=== PATIENT | male | born 1945 | race Caucasian/White ===

== ENCOUNTER → 2024-03-26 13:03 | Outpatient (REF) | payer OTHER, SELFPAY | LOC: PAVMRI 13:03 | PROVIDERS: ATTENDING PHYSICIAN Physical Medicine & Rehabilitation Pain Medicine; FAMILY PHYSICIAN Internal Medicine | DX: M54.16 Radiculopathy, lumbar region (principal); M48.062 Spinal stenosis, lumbar region with neurogenic claudication | CPT/HCPCS: 72158; A9575 ==

== ENCOUNTER → 2025-06-03 17:02 | Outpatient (REF) | payer OTHER, SELFPAY ==
[2025-06-03 17:27] LABS: Hematocrit 46.6 % (39.0-52.0); Hemoglobin 16.0 g/dL (13.0-18.0); Mean Corp Hgb Conc. 34.3 g/dL (33.0-37.0); Mean Corpuscular Volume 90.7 fL (80.0-94.0); Nucleated Red Blood Cells % 0 % (-); Platelet Count 240 10^3/uL (130-400); Red Cell Dist. Width 13.0 % (11.5-14.5)
[2025-06-03 17:44] LABS: ALT (SGPT) 36 U/L (0-50); AST (SGOT) 32 U/L (17-59); Albumin 4.4 g/dl (3.5-5.0); Alkaline Phosphatase 95 U/L (38-126); Blood Urea Nitrogen 20 mg/dl (9-20); Calcium 9.6 mg/dl (8.4-10.2); Carbon Dioxide 24 mmol/L (22-30); Chloride 104 mmol/L (98-107); Glucose 148 mg/dl (70-99); Potassium 4.0 mmol/L (3.5-5.1); Sodium 136 mmol/L (135-145); Total Protein 6.8 g/dl (6.3-8.2); eGFR 46.48
== END ==
LOC: REG 17:02
PROVIDERS: ATTENDING PHYSICIAN Internal Medicine
DX: R10.32 Left lower quadrant pain (principal); I10 Essential (primary) hypertension; E11.65 Type 2 diabetes mellitus with hyperglycemia
CPT/HCPCS: 36415; 80053; 85025

== ENCOUNTER → 2025-06-04 10:00 | Outpatient (REF) | payer OTHER, SELFPAY | LOC: RAD 10:00 | PROVIDERS: ATTENDING PHYSICIAN Internal Medicine | DX: R10.32 Left lower quadrant pain (principal); E11.65 Type 2 diabetes mellitus with hyperglycemia | CPT/HCPCS: 74177; Q9967 ==

== ENCOUNTER 2025-06-05 11:22 | Emergency (ER) | payer OTHER, SELFPAY ==
[2025-06-05 11:22] VITALS: BMI 34.4
[2025-06-05 11:25] VITALS: BP 127/88
[2025-06-05 11:42] LABS: Urine Character Slightly Cloudy (Clear)
[2025-06-05 11:43] LABS: Hematocrit 43.2 % (39.0-52.0); Hemoglobin 14.9 g/dL (13.0-18.0); Mean Corp Hgb Conc. 34.5 g/dL (33.0-37.0); Mean Corpuscular Volume 89.3 fL (80.0-94.0); Nucleated Red Blood Cells % 0 % (-); Platelet Count 212 10^3/uL (130-400); Red Cell Dist. Width 13.1 % (11.5-14.5)
[2025-06-05 11:58] LABS: Urine Urothelial Cell 0-2 /LPF (FEW)
[2025-06-05 11:59] LABS: Urine Red Blood Cell 50-60 /HPF (0-2)
[2025-06-05 12:06] LABS: ALT (SGPT) 35 U/L (0-50); AST (SGOT) 31 U/L (17-59); Albumin 4.1 g/dl (3.5-5.0); Alkaline Phosphatase 85 U/L (38-126); Blood Urea Nitrogen 21 mg/dl (9-20); Calcium 8.9 mg/dl (8.4-10.2); Carbon Dioxide 22 mmol/L (22-30); Chloride 108 mmol/L (98-107); Glucose 135 mg/dl (70-99); Potassium 4.0 mmol/L (3.5-5.1); Sodium 138 mmol/L (135-145); Total Protein 6.3 g/dl (6.3-8.2); eGFR 50.49
[2025-06-05 12:46] VITALS: BP 122/74
--- NOTE | 2025-06-05 13:12 | ED.GENMED ---
History of Present Illness
General
Chief Complaint: Abdominal Symptoms
Time Seen by Provider: 06/05/25 12:36
History of Present Illness
History of Present Illness:
79-year-old male presents the emergency department for evaluation of left-sided abdominal pain rating to the left flank. He began with the symptoms 3 days ago and saw his primary care physician 2 days ago. He was prescribed Cipro and Flagyl for
presumed diverticulitis. States that last night he had severe increase in pain rating toward the flank as well as dysuria however the symptoms improve dramatically this morning. Had an outpatient CT scan performed yesterday and his doctor advised
him come to the ED as scan was read as normal. Currently feels well with no complaints
Past History
Past History
ED Past Medical History: Cancer, GERD, HTN and NIDDM
ED Past Surgical History: Appendectomy, Orthopedic (Total knee replacement), Urological and Other (Prostatectomy )
Social History
Tobacco: Non-smoker
Personal:
Living: with family
Review of Systems
Review of Systems
Allergies reviewed?: Yes
All Other Systems: ROS reviewed and negative except as documented in HPI and ROS
Phy Exam
Physical Exam
Physical Exam:
GEN: Well appearing, NAD, WDWN
HEENT: Oral mucosa moist, no scleral icterus
Cardiac: Regular rate
Lung: No respiratory distress, no tachypnea
Abdomen: Soft, grossly nontender
MSK: No gross deformity or injuries
Skin: Good color, no pallor or jaundice, no rashes
Neuro: AO x3, moves all extremities freely
Psych: Calm, cooperative
Course
Orders/Labs/Results
Orders:
Orders
06/05/25 11:36
Complete Blood Count/With Diff Urgent
Comprehensive Metabolic Panel Urgent
Urinalysis Reflex To Culture Urgent
Date Specimen was Collected: 06/05/25
Time Specimen was Collected: 11:28
Urine Microscopic Reflex Cult Urgent
Urine Culture Urgent
GREGORIO Source: U
Specimen Description:
Date Specimen was Collected: 06/05/25
Time Specimen was Collected: 11:28
Abnormal Lab Results
06/05/25
11:36
WBC 12.9 H 10^3/uL
(4.8-10.8)
Abs Immat Gran (auto) 0.1 H 10^3/uL
(0-0.05)
Absolute Neuts (auto) 10.0 H 10^3/uL
(1.4-6.5)
Absolute Monos (auto) 1.3 H 10^3/uL
(0.1-0.6)
Neutrophils % 77.2 H %
(42.2-75.2)
Lymphocytes % 10.9 L %
(20.5-51.1)
Monocytes % 10.3 H %
(1.7-9.3)
Chloride 108 H mmol/L
(98-107)
BUN 21 H mg/dl
(9-20)
Creatinine 1.4 H mg/dL
(0.7-1.3)
Glucose 135 H mg/dl
(70-99)
Urine Ketones 1+ A
(Negative)
Ur Occult Blood Reflex 4+ A
(Negative)
Leukocyte Esterase Rfl 2+ A
(Negative)
Urine RBC 50-60 A /HPF
(0-2)
Urine WBC (Reflex) 11-15 A /HPF
(0-5)
Urine Bacteria (Reflex) Moderate A
(Negative)
Urine Albumin (Reflex) 2+ A
(Neg - Trace)
06/05/25 11:36
06/05/25 11:36
Vital Signs
Initial and Last Documented VS:
Initial Vital Signs
Temp Pulse Resp BP Pulse Ox
98.5 F 101 18 127/88 96
06/05/25 11:25 06/05/25 11:25 06/05/25 11:25 06/05/25 11:25 06/05/25 11:25
Last Documented Vital Signs
Temp Pulse Resp BP Pulse Ox
98 F 84 16 122/74 99
06/05/25 12:46 06/05/25 12:46 06/05/25 12:46 06/05/25 12:46 06/05/25 13:13
MDM/Problems Addressed
MDM/Problems Addressed:
I personally reviewed CT images from yesterday and discussed with radiology on-call, it appears that there is actually a 4 mm distal ureteral stone that I suspect the patient has passed evident by his increased pain last night and abrupt resolution
this morning. Given his UA findings with bacteriuria will continue Cipro but discontinue metronidazole
*Pulse Oximetry
SaO2: 99
Oxygen Mode of Delivery: Room air
Patient hypoxic: no
*Critical Care Note
Total Time (30-74mins, 75-104mins- exclusive of procedures): Not Applicable
ED Attending Note
-
Portions of this chart may have been created with voice recognition software.� Occasional wrong word or��sound alike� substitutions may have occurred due to the inherent limitations of voice recognition software.
Discharge Plan
Departure
Patient Disposition: Home (Routine Discharge)
Date of Disposition: 06/05/25
Time of Disposition: 13:12
Patient with high blood pressure during this ER visit?: No
Discharge Problem:
Ureterolithiasis
Instructions: Kidney stones in adults - ED discharge instructions
Prescriptions:
No Action
amlodipine 10 MG tablet
10 mg PO DAILY Qty: 0 0RF
Rx Instructions:
HOLD SYSTOLIC BLOOD PRESSURE <130
glimepiride 1 MG tablet
1 mg PO DAILY
metformin 500 MG tablet
500 mg PO DAILY@1200,1800 Qty: 0 0RF
Rx Instructions:
hold until abx are completed
irbesartan 150 MG tablet
150 mg PO DAILY Qty: 0 0RF
Rx Instructions:
HOLD SYSTOLIC BLOOD PRESSURE <130, hold until seen by your PCP
omeprazole 40 MG capsule,delayed release(DR/EC)
40 mg PO DAILY
multivitamin 1 EACH tablet
1 ea PO DAILY
naproxen sodium [Aleve] 220 MG tablet
220 mg PO PRN PRN (Reason: pain)
doxazosin 4 MG tablet
4 mg PO DAILY
simethicone [Gas-X Extra Strength] 125 MG tablet,chewable
2 tab PO PER PROTOCOL
Patient Comments:
took at 1500 03/03/22 ans 03/04/22 at 0330
bisacodyl 5 MG tablet,delayed release (DR/EC)
10 mg PO PER PROTOCOL
Patient Comments:
took at 03/03/22 at 1500 and 03/04/22 at 0330
cholecalciferol (vitamin D3) [Vitamin D3] 1,000 UNIT capsule
1,000 unit PO DAILY
Miralax:
1 packet PO PER PROTOCOL
Patient Comments:
8 ounce bottle with 64 ounces gatorade at 1800 on 03/03/22
4 ounce bottle with 32 ounces gatorade 0330 on 03/04/22
Referrals:
Joby Pérez I., DO [Family Provider, Internal Medicine]
Activity Restrictions/Additional Instructions:
I suspect you passed a kidney stone at this point. Please discontinue the metronidazole but complete the full course of ciprofloxacin. Follow-up with your primary care physician for further care
Interventions
Interventions:
*Risk Screen - Suicide Last Done: 06/05/25 11:25
*General Assessment Last Done: 06/05/25 11:25
*Neglect/Abuse Screening Last Done: 06/05/25 11:25
*ED- Fall Risk Assessment Last Done: 06/05/25 11:25
*ED COVID-19 Vaccine History Last Done: 06/05/25 11:25
*Nursing Disposition Last Done: 06/05/25 13:17
[facility]ago[facility]-Wultv[facility] Assessment Last Done: 06/05/25 12:46
Discharge Date and Time
Discharge Date/Time: 06/05/25 13:17
Print Language: MAORI
== END 2025-06-05 13:17 | disposition home or self-care (01) ==
LOC: EMR 11:22
PROVIDERS: Emergency Medicine; EMERGENCY PHYSICIAN Emergency Medicine; FAMILY PHYSICIAN Internal Medicine
DX: N20.1 Calculus of ureter (principal); R82.71 Bacteriuria; I10 Essential (primary) hypertension; E11.9 Type 2 diabetes mellitus without complications; Z90.49 Acquired absence of other specified parts of digestive tract; Z90.79 Acquired absence of other genital organ(s)
CPT/HCPCS: 99283; 80053; 81003; 81015; 85025; 87086

== ENCOUNTER 2025-07-31 02:44 | Inpatient (IN) | payer OTHER, SELFPAY ==
[2025-07-30 17:31] VITALS: BP 114/68
--- NOTE | 2025-07-30 21:14 | ED.GENMED ---
History of Present Illness
General
Chief Complaint: DVT/Possible Blood Clot
Source: patient
Exam Limitations: none
Time Seen by Provider: 07/30/25 21:07
History of Present Illness
History of Present Illness:
79-year-old male swelling to the right leg for the last day. Warren some pain in the right lateral hip yesterday with walking. This is improved and is mild in nature. However woke up this morning the swelling to the right leg. No warmth or
erythema to the patient no fever or chills. No chest pain or shortness of breath. No recent long trip.
Past History
Past History
ED Past Medical History: Cancer, GERD, HTN and NIDDM
ED Past Surgical History: Appendectomy, Orthopedic (Total knee replacement), Urological and Other (Prostatectomy )
Social History
Tobacco: Non-smoker
Personal:
Living: with family
Review of Systems
Review of Systems
All Other Systems: Not applicable
Constitutional: Denies fever or chills
Phy Exam
Physical Exam
Physical Exam:
GENERAL: Alert and oriented in no apparent distress
EYE: Orbits normal.
NECK: Supple
CARDIAC: Regular rate and rhythm without any obvious murmurs.
LUNGS: Clear breath sounds,normal
ABDOMEN: Soft, without focal tenderness or distention
NEUROLOGICAL: Alert and oriented , grossly non-focal
SKIN: Warm and dry, mild erythematous hue to the right lower extremity diffusely
MUSCULOSKELETAL: Moderate edema to the right lower extremity diffusely. Good distal pulses and color. No pain with joint motion or bony tenderness.
PSYCH: Normal and appropriate interaction.
Course
Orders/Labs/Results
Orders:
Orders
07/30/25 17:26
Legs, Right US [US Periph Venous LOWER Ext RT] Urgent
Comment:
Reason For Exam: r/o dvt
07/30/25 23:19
Basic Metabolic Panel Urgent
Complete Blood Count/With Diff Urgent
07/31/25
CT Abd/Pel (IV only)-DH only Urgent
Reason For Exam: ct venogram protocal
07/31/25 01:38
PTT Urgent
Comment: Obtain baseline before beginning heparin infusion if not already collected
Heparin 9,000 units IV NOW STA
Pharmacy Request to Place See Dose Instructions PO NOW STA
Discontinue all Active Warfarin orders?: Yes
Nursing to Place Non Medication Order As Directed
Physician Order: PTT 6 hours after initial start of Heparin infusion
07/31/25 01:45
Heparin 22263 Units/250 ml 25,000 units in 250 ml IV PER PROTOCOL
Weight to be used for heparin protocol in kilograms (kg):: 112.2
Protocol:: DVT/PE
PTT Goal Range to be used:: PTT 73 to 111 seconds
Order type:: Initial
INITIAL Infusion Dose (UNITS/KG/hr) & then follow protocol:: 18 units/kg/hr
Infusion Dose in UNITS/hr & then follow protocol (UNITS/hr):: 2,000
INFUSION RATE in mL/hr & then follow protocol (mL/hr):: 20
For DVT/PE algorithm, re-bolus for low PTT?: Yes
PTT less than or equal to 64 seconds:: Re-bolus 80 units/kg (max 10,000units). Increase by 500 units/hr
(+ 5mL/hr)
PTT 64.1 to 72.9 seconds:: Re-bolus 40 units/kg (max 5,000 units). Increase by 200 units/hr
(+ 2mL/hr)
PTT 73 to 111 seconds:: Target Range. No change in rate.
PTT 111.1 to 130.9 seconds:: Decrease rate by 200 units/hr (- 2 mL/hr)
PTT 131 to 199.9 seconds:: HOLD for 1 hr. Then decrease by 400 units/hr (- 4mL/hr)
PTT greater than or equal to 200 seconds:: HOLD for 2 hrs & Notify Provider. Then decrease by 500 units/hr
(- 5mL/hr)
Lab follow-up:: Each change, PTT q6h until 2 consecutive are therapeutic. Then
PTT daily.
07/31/25 02:[address] See Dose Instructions IV DIRECTED
Abnormal Lab Results
07/30/25
23:19
WBC 11.8 H 10^3/uL
(4.8-10.8)
RBC 4.50 L 10^6/uL
(4.70-6.10)
MCH 31.3 H pg
(27.0-31.0)
Abs Immat Gran (auto) 0.1 H 10^3/uL
(0-0.05)
Absolute Neuts (auto) 7.5 H 10^3/uL
(1.4-6.5)
Absolute Monos (auto) 1.3 H 10^3/uL
(0.1-0.6)
Absolute Eos (auto) 0.8 H 10^3/uL
(0-0.7)
Lymphocytes % 17.3 L %
(20.5-51.1)
Monocytes % 11.1 H %
(1.7-9.3)
Eosinophils % 6.5 H %
(0-6)
Chloride 108 H mmol/L
(98-107)
BUN 21 H mg/dl
(9-20)
Glucose 117 H mg/dl
(70-99)
07/30/25 23:19
07/30/25 23:19
Vital Signs
Initial and Last Documented VS:
Initial Vital Signs
Temp Pulse Resp BP Pulse Ox
98.0 F 112 18 114/68 97
07/30/25 17:31 07/30/25 17:31 07/30/25 17:31 07/30/25 17:31 07/30/25 17:31
Last Documented Vital Signs
Temp Pulse Resp BP Pulse Ox
98.1 F 83 18 142/69 95
07/30/25 21:39 07/31/25 01:30 07/31/25 01:30 07/31/25 01:00 07/31/25 01:30
*Radiology
Radiology exam reviewed: radiology read reviewed (Extensive DVT by ultrasound) and other (CT venogram extensive DVT with extensive edema of the right thigh with extension into the right external iliac vein)
*Pulse Oximetry
SaO2: 97
Oxygen Mode of Delivery: Room air
Patient hypoxic: no
*Critical Care Note
Total Time (30-74mins, 75-104mins- exclusive of procedures): Not Applicable
ED Attending Note
-
Portions of this chart may have been created with voice recognition software.� Occasional wrong word or��sound alike� substitutions may have occurred due to the inherent limitations of voice recognition software.
Discharge Plan
Departure
Patient Disposition: Admit
Date of Disposition: 07/31/25
Time of Disposition: 01:42
Presentation/result/management discussed w/ accepting MD/DO: Vascular surgery
Discharge Problem:
Extensive right lower extremity DVT
Prescriptions:
No Action
amlodipine 10 MG tablet
10 mg PO DAILY Qty: 0 0RF
Rx Instructions:
HOLD SYSTOLIC BLOOD PRESSURE <130
glimepiride 1 MG tablet
1 mg PO DAILY
metformin 500 MG tablet
500 mg PO DAILY@1200,1800 Qty: 0 0RF
Rx Instructions:
hold until abx are completed
irbesartan 150 MG tablet
150 mg PO DAILY Qty: 0 0RF
Rx Instructions:
HOLD SYSTOLIC BLOOD PRESSURE <130, hold until seen by your PCP
omeprazole 40 MG capsule,delayed release(DR/EC)
40 mg PO DAILY
multivitamin 1 EACH tablet
1 ea PO DAILY
naproxen sodium [Aleve] 220 MG tablet
220 mg PO PRN PRN (Reason: pain)
doxazosin 4 MG tablet
4 mg PO DAILY
simethicone [Gas-X Extra Strength] 125 MG tablet,chewable
2 tab PO PER PROTOCOL
Patient Comments:
took at 1500 03/03/22 ans 03/04/22 at 0330
bisacodyl 5 MG tablet,delayed release (DR/EC)
10 mg PO PER PROTOCOL
Patient Comments:
took at 03/03/22 at 1500 and 03/04/22 at 0330
cholecalciferol (vitamin D3) [Vitamin D3] 1,000 UNIT capsule
1,000 unit PO DAILY
Miralax:
1 packet PO PER PROTOCOL
Patient Comments:
8 ounce bottle with 64 ounces gatorade at 1800 on 03/03/22
4 ounce bottle with 32 ounces gatorade 0330 on 03/04/22
Referrals:
Joby Pérez I., DO [Family Provider, Internal Medicine]
Interventions
Interventions:
*Risk Screen - Suicide Last Done: 07/30/25 17:31
*General Assessment Last Done: 07/30/25 17:31
*Neglect/Abuse Screening Last Done: 07/30/25 17:31
*ED- Fall Risk Assessment Last Done: 07/30/25 21:34
*ED COVID-19 Vaccine History Last Done: 07/30/25 21:34
ED- Cardiac Assessment Last Done: 07/30/25 21:34
ED- Pulmonary Assessment Last Done: 07/30/25 21:34
ED-Peripheral Vascular Assessment Last Done: 07/30/25 21:36
ED-Skin Assessment Last Done: 07/30/25 21:36
Discharge Date and Time
Print Language: PASHTO
[2025-07-30 21:33] VITALS: BMI 37.6
[2025-07-30 21:47] VITALS: BP 135/69
[2025-07-30 23:08] VITALS: BP 145/67
[2025-07-30 23:30] LABS: Hematocrit 41.3 % (39.0-52.0); Hemoglobin 14.1 g/dL (13.0-18.0); Mean Corp Hgb Conc. 34.1 g/dL (33.0-37.0); Mean Corpuscular Volume 91.8 fL (80.0-94.0); Nucleated Red Blood Cells % 0 % (-); Platelet Count 192 10^3/uL (130-400); Red Cell Dist. Width 13.2 % (11.5-14.5)
[2025-07-30 23:52] LABS: Blood Urea Nitrogen 21 mg/dl (9-20); Calcium 9.2 mg/dl (8.4-10.2); Carbon Dioxide 25 mmol/L (22-30); Chloride 108 mmol/L (98-107); Estimated Creatinine Clearance 88 ml/min; Glucose 117 mg/dl (70-99); Potassium 4.1 mmol/L (3.5-5.1); Sodium 139 mmol/L (135-145); eGFR > 60.00
[2025-07-31] VITALS (10 sets, daily range): BP systolic 132–151; BP diastolic 65–87; BMI 36.1
[2025-07-31] MEDS: HEPARIN 9000 UNITS IV (01:56)
[2025-07-31] MEDS: HEPARIN 25000 UNITS/250 ML IV ×2 (01:58→17:22)
[2025-07-31 02:28] LABS: APTT 25.0 Sec (23.4-35.0)
--- NOTE | 2025-07-31 02:39 | HPS.HSE ---
Family Physician
-
Family Physician: Joby Pérez
Chief Complaint
-
RLE swelling
History of Present Illness
Patient is an 79y M with PMH significant for hypertension, DM-II and GERD who presents to ED complaining of RLE swelling. Patient states that he went for a short walk yesterday afternoon around 2 PM. During the walk he developed sharp pain in
the R hip / buttock area which caused him to cut his walk short. His pain persisted throughout the evening. When he awoke this AM, patient noted marked swelling and discoloration of the entire RLE. He was seen by his PCP who referred him to the
ED for evaluation.
Patient denies any associated chest pain, dyspnea, fevers, chills, etc.
No recent surgery, long car rides, air travel, etc.
No prior h/o VTE.
Medical History
Past Medical History
Past Medical History: Reports Other
Additional Past Medical History:
Hypertension
GERD / Monreal's Esophagus
Prostate Cancer
DM-II
GONZALEZ
Skin Cancer
Obesity
Past Surgical History: Reports Other
Additional Past Surgical History:
Prostatectomy
Appendectomy
Mohs Surgery
Bilateral TKA
Lumbar Laminectomy
Cataracts
Social History
Tobacco: Non-smoker
Alcohol: Daily (2 drinks daily on average.)
Drug: None
Personal:
Living: With Family
Family History
Family History: Not pertinent
Allergies / Home Medications
Allergies reflects when Allergies were last updated in [facility].
Home Medications with original date entered in [facility]
Allergy/Medication List:
Allergies
Allergy/AdvReac Type Severity Reaction Status Date / Time
cat dander Allergy ITCHING/SNEEZING/WATERY Verified 07/30/25 17:31
EYES
pollen extracts Allergy ITCHING/SNEEZING/WATERY Verified 07/30/25 17:31
EYES
Home Medications
amlodipine 10 mg tablet 10 mg PO DAILY ##0 02/08/19
irbesartan 150 mg tablet 150 mg PO DAILY ##0 06/15/19
cholecalciferol (vitamin D3) 25 mcg (1,000 unit) capsule (Vitamin D3) 1,000 unit PO DAILY 03/04/22
doxazosin 4 mg tablet 4 mg PO DAILY 03/04/22
celecoxib 100 mg capsule (Celebrex) 100 mg PO BID 07/31/25
metformin 500 mg tablet 500 mg PO DAILY 07/31/25
pantoprazole 40 mg tablet,delayed release 40 mg PO DAILY 07/31/25
semaglutide 1 mg/dose (4 mg/3 mL) subcutaneous pen injector (Ozempic) 1 mg SC WEEKLY 07/31/25
Review of Systems
-
History Source: Patient
A 12 point ROS was completed and negative except as noted: Yes
Constitutional: Denies Fever, Fatigue or Chills
Respiratory: Denies Cough or Trouble Breathing
Cardiac: Denies Chest Pain or Palpitations
Abdomen/GI: Denies Abdominal Pain, Nausea, Vomiting or Diarrhea
: Denies Dysuria or Flank Pain
Musculoskeletal: Reports Edema
Neurological: Denies Dizzy or Headache
Psych: Denies Depression or Anxiety
Physical Exam
Vital Signs
Vital Signs
Temp Pulse Resp BP Pulse Ox
98.1 F 83 18 142/69 95
07/30/25 21:39 07/31/25 01:30 07/31/25 01:30 07/31/25 01:00 07/31/25 01:30
Physical Exam
General: Other (79y M in no acute distress.)
HEENT: Moist mucous membranes and PERRLA
Respiratory: Clear; No Wheezes, Rales or Rhonchi
Cardiac: S1/S2 and Regular Rhythm; No Murmur
GI: Soft, Non Tender, Non Distended and Normal Bowel Sounds
Musculoskeletal: No Clubbing, No Cyanosis and Other (3-4+ pitting edema of the entire RLE with chronic venous stasis skin changes / discoloration. Pos tenderness throughout.)
Neuro: AO x 3
Laboratory Results
-
07/30/25 23:19
07/30/25 23:19
Laboratory Results
APTT 25.0 Sec (23.4-35.0) 07/31/25 02:03
Impression/Plan
-
A/P: Patient is an 79y M with PMH significant for hypertension, DM-II and obesity who presents to ED complaining of sudden onset of marked RLE swelling.
Extensive RLE DVT
- Admit for further evaluation and treatment.
- IV heparin overnight.
- Supportive care, pain control. Follow for persistent pulses / intact neurovascular exam.
- Vascular Surgery consulted - will likely benefit from directed therapy +/- thrombectomy given extensive nature of thrombosis.
- No clear trigger / etiology - consider outpatient Hematology evaluation.
- May benefit from lifelong anticoagulation.
Benign Hypertension
- Stable. Continue usual home med regimen with holding parameters.
DM-II
- Stable. Hold metformin s/p contrast study.
- Follow glucose and cover with SSI as needed.
- Update A1C.
GERD
- Stable. Continue daily PPI.
Obesity due to excess calories
- Affects all aspects of care.
- Encourage healthy diet and increased activity with goal of weight loss.
- On Ozempic as an outpatient.
DVT Prophylaxis: On IV Heparin
Code Status: Full
[2025-07-31 04:23] LABS: Glucose - Point of Care 104 mg/dl (70-99)
--- NOTE | 2025-07-31 04:34 | PTCARENOTE ---
Pt received from ER [facility] able to make his needs known.Denies pain.Pt received with the heparin drip running at 20ml/hr. Pt oriented to room & call henley in reach.Plan of care continued on pt.
--- NOTE | 2025-07-31 07:19 | W.PN.HOSP.TC ---
Today's Communication/Plan
-
Continue Heparin Drip -- continue through 08/02/25 morning to complete 48 hours
Will transition to [facility] 08/02/25 morning
Appreciate vascular surgery
Assessment / Plan
Assessment / Plan
Physical Exam
General: Not in acute distress
HEENT: Normocephalic. Moist mucous membranes
Respiratory: Clear to Auscultation Bilaterally
Cardiac: S1/S2 and Regular Rhythm
GI: Soft, Non Tender, Non Distended and Normal Bowel Sounds
Musculoskeletal: No Cyanosis and Other (3-4+ pitting edema of the entire RLE with chronic venous stasis skin changes / discoloration. Pos tenderness throughout. Wrapped in EDWIN Wrap)
Neuro: AO x 3
Assessment/Plan
79y M with H significant for hypertension, DM-II and GERD who presented to [facility] emergency room complaining of RLE swelling. Patient stated that he went for a short walk on 07/29/25 afternoon around 2 PM. During the walk, he developed sharp pain in
the right hip/buttock area which caused him to cut his walk short. His pain persisted throughout the evening. When he awoke on 07/30/25 morning, patient noted marked swelling and discoloration of the entire RLE. He was seen by his PCP who
referred him to the ED for evaluation.
Patient denied any associated chest pain, dyspnea, fevers, chills, etc.
No recent surgery, long car rides, air travel, etc.
No prior h/o VTE.
Extensive RLE DVT
- Continue IV heparin DVT/PE protocol
- Supportive care, pain control. Follow for persistent pulses / intact neurovascular exam.
- Vascular Surgery consulted - no procedures at this time, unless patient gets more symptomatic with his right leg
- No clear trigger / etiology - consider outpatient Hematology evaluation -- [facility] Texted (on 07/31/25) on-call identification and records commander, have not heard back yet
- May benefit from lifelong anticoagulation.
- Neurovascular checks
Benign Hypertension
- Stable. Continue usual home med regimen with holding parameters.
DM-II
- Stable. Hold metformin s/p contrast study.
- Follow glucose and cover with SSI as needed.
- Update A1C 5.7%
GERD
- Stable. Continue daily PPI.
Obesity due to excess calories
- Affects all aspects of care.
- Encourage healthy diet and increased activity with goal of weight loss.
- On Ozempic as an outpatient.
DVT Prophylaxis: On IV Heparin
Code Status: Full
This is a non-billable note.
Anticipated Discharge: 24 - 48 hours
Subjective/Interval History
-
Date of Service: July 31, 2025
Patient was seen and examined. He reported no chest pain or shortness of breath, but he still has the same right leg swelling.
Objective Data
-
Labs:
Laboratory Results
07/30/25 07/31/25 07/31/25
23:19 02:03 06:00
WBC 11.8 H
Hgb 14.1
Hct 41.3
Plt Count 192
APTT 25.0
Sodium 139 Pending
Potassium 4.1 Pending
Chloride 108 H Pending
Carbon Dioxide 25 Pending
BUN 21 H Pending
Creatinine 0.8 Pending
Glucose 117 H Pending
Calcium 9.2 Pending
07/31/25
08:00
WBC
Hgb
Hct
Plt Count
APTT Pending
Sodium
Potassium
Chloride
Carbon Dioxide
BUN
Creatinine
Glucose
Calcium
Vital Signs:
Vital Signs
Temp Pulse Resp BP Pulse Ox
98.3 F 84 18 150/69 96
07/31/25 03:49 07/31/25 03:49 07/31/25 03:49 07/31/25 03:49 07/31/25 03:49
I&O
07/30/25 07/31/25 08/01/25
06:59 06:59 06:59
Intake Total 0 / 0
Output Total 0 / 0
Balance 0 / 0
--- NOTE | 2025-07-31 07:56 | W.PN.UPDATE ---
Update Note
Progress Note Update
Seen and examined with [employer]. Full consultation to follow. Briefly 79-year-old male with history of diabetes, hypertension. No prior history of DVTs, no family history of DVTs. He notes that he went for a walk 2 days ago in the afternoon and
started noticing pain when walking. He notes that the pain was mostly in his right hip/buttock area. He could not continue his walk for prolonged period as a result. Then he noted later yesterday that he actually had swelling in the leg and that
prompted referral to the emergency room. Found to have extensive right lower extremity DVT. Denies any recent illnesses, hospitalizations, surgeries, prolonged travels. As noted he denies any personal prior history of DVTs. No history of
malignancies that he is aware of. No history of strokes, intracranial bleeds, GI bleeds, recent major surgeries.
On exam/he is awake and alert. He is in no acute distress. Breathing is unlabored. Abdomen is soft, nondistended, nontender. Groins are flat bilaterally. Right thigh and calf with moderate edema. Soft and compressible however. Nontender.
Compartments are all soft. No phlegmasia. Foot is warm with palpable pedal pulses bilaterally.
Duplex reviewed. Extensive DVT right lower extremity with thrombus in the right groin common femoral vein extending down to the right calf.
CT venogram reviewed images by me. There is thrombus in the common femoral vein. Appears more like a target central thrombus with flow peripherally around it. The external iliac and common iliac veins on the right side look normal without any
evidence of thrombus.
Plan/ Acute extensive right lower extremity DVT. No evidence of iliac vein extension on CT venogram. And on CT venogram there is flow peripherally in the common femoral vein around the thrombus. Based on this, I discussed with him indications for
venous thrombectomy (catheter-based venous thrombectomy versus thrombolysis). Without iliac vein component, without phlegmasia, without severe pain, and given his age, would favor conservative management. I did discuss that we could offer
catheter-based therapy but based on best available data, there may not be of benefit compared to anticoagulation and compression alone. We wrapped the leg with Serge bandage. He is on anticoagulation, would continue that. Would recommend hematology
evaluation for etiology and duration of anticoagulation. If patient with severe extensive continued symptoms when walking/ambulating, please reconsult and we will consider catheter-based procedure. However patient already tell me that he has
walked since he has been here and he was doing fine and had no trouble walking. In addition he notes that his initial buttock pain is resolved.
[2025-07-31 07:59] LABS: Glucose - Point of Care 107 mg/dl (70-99)
--- NOTE | 2025-07-31 07:59 | CON.VAS ---
Consultation
Consultation Request
Date/Time Consultation Performed: 07/27/2025 at 7:30 AM
Performing Provider: Duc
Reason for Consultation: DVT
Medical History
-
Chief Complaint: Right lower extremity swelling
History of Present Illness:
79-year-old male with past medical history significant for hypertension, diabetes, GERD, skin cancer presented to the ER last evening for right lower extremity swelling. Patient states on 07/29 he went for a walk which was shortened by a sudden
onset of right hip/buttock discomfort. He states the pain persisted throughout the evening and when he woke early yesterday morning he noted right lower extremity swelling through the entire leg. Patient was seen by his PCP who referred him to the
emergency room. Denies recent surgeries, long car rides, air travel, GI bleed, head bleed. Denies history of DVT, CAD. Denies family history of DVTs.
Duplex reviewed by Dr Xavier. Extensive DVT right lower extremity with thrombus in the right groin common femoral vein extending down to the right calf.
CT venogram suggests thrombus in the common femoral vein. Appears more like a target central thrombus with flow peripherally around it. The external iliac and common iliac veins on the right side look normal without any evidence of thrombus.
Past Medical History
Past Medical History: Cancer (skin), GERD, HTN and NIDDM
Past Surgical History: Appendectomy and Other (Prostatectomy, Mohs Surgery, Bilateral TKA Lumbar Laminectomy, Cataracts)
Social History
Tobacco: Non-Smoker
Alcohol: Occasional
Personal:
Living: With Family
Family History
Family History: Reviewed & Not Pertinent
Allergies / Home Medications
Allergy/AdvReac Type Severity Reaction Status Date / Time
cat dander Allergy ITCHING/SNEEZING/WATERY Verified 07/30/25 17:31
EYES
pollen extracts Allergy ITCHING/SNEEZING/WATERY Verified 07/30/25 17:31
EYES
�Medication �Instructions �Recorded �Confirmed �Type
amlodipine 10 mg tablet 10 mg PO DAILY ##0 02/08/19 07/31/25 Rx
irbesartan 150 mg tablet 150 mg PO DAILY ##0 06/15/19 07/31/25 Rx
cholecalciferol (vitamin D3) 25 1,000 unit PO DAILY 03/04/22 07/31/25 History
mcg (1,000 unit) capsule (Vitamin
D3)
doxazosin 4 mg tablet 4 mg PO DAILY 03/04/22 07/31/25 History
celecoxib 100 mg capsule (Celebrex) 100 mg PO BID 07/31/25 07/31/25 History
metformin 500 mg tablet 500 mg PO DAILY 07/31/25 07/31/25 History
pantoprazole 40 mg tablet,delayed 40 mg PO DAILY 07/31/25 07/31/25 History
release
semaglutide 1 mg/dose (4 mg/3 mL) 1 mg SC WEEKLY 07/31/25 07/31/25 History
subcutaneous pen injector (Ozempic)
Review of Systems
-
History Source: Patient
All other systems: Negative unless noted
Constitutional: Reports No Symptoms
EENT: Reports No Symptoms
Respiratory: Reports No Symptoms
Cardiac: Reports No Symptoms
Vascular: Denies Leg Pain / Claudication
Abdomen/GI: Reports No Symptoms
: Reports No Symptoms
Musculoskeletal: Reports Edema
Skin: Reports No Symptoms
Neurological: Reports No Symptoms
Physical Exam
Vital Signs
Temp Pulse Resp BP Pulse Ox
98.3 F 84 18 150/69 96
07/31/25 03:49 07/31/25 03:49 07/31/25 03:49 07/31/25 03:49 07/31/25 03:49
Lab Results
07/30/25 23:19
Physical Exam
General: No Apparent Distress
HEENT: Normocephalic and Atraumatic
Respiratory: Non Labored Respirations
Cardiac: Negative JVD
GI: Soft and Non Tender
Musculoskeletal: No Clubbing, No Cyanosis and Edema (RLE, soft, all compartments soft)
Skin: Warm
Neuro: Awake, Alert and Oriented
Psych: Calm
Pulses: Bilateral Dorsalis Pedis: +2
Assessment / Plan
-
Plan/ Acute extensive right lower extremity DVT. No evidence of iliac vein extension on CT venogram. And on CT venogram there is flow peripherally in the common femoral vein around the thrombus. Based on this, I discussed with him indications for
venous thrombectomy (catheter-based venous thrombectomy versus thrombolysis). Without iliac vein component, without phlegmasia, without severe pain, and given his age, would favor conservative management. I did discuss that we could offer
catheter-based therapy but based on best available data, there may not be of benefit compared to anticoagulation and compression alone. We wrapped the leg with Serge bandage. He is on anticoagulation, would continue that. Would recommend hematology
evaluation for etiology and duration of anticoagulation. If patient with severe extensive continued symptoms when walking/ambulating, please reconsult and we will consider catheter-based procedure. However patient already tell me that he has
walked since he has been here and he was doing fine and had no trouble walking. In addition he notes that his initial buttock pain is resolved.
Data Reviewed
-
CT Scan: Discussed with Patient
Ultrasound: Discussed with Patient
Labs: Labs Reviewed by me
[2025-07-31 08:26] LABS: Blood Urea Nitrogen 16 mg/dl (9-20); Calcium 8.9 mg/dl (8.4-10.2); Carbon Dioxide 26 mmol/L (22-30); Chloride 107 mmol/L (98-107); Estimated Creatinine Clearance 86 ml/min; Glucose 112 mg/dl (70-99); Potassium 3.8 mmol/L (3.5-5.1); Sodium 138 mmol/L (135-145); eGFR > 60.00
[2025-07-31 08:49] LABS: APTT > 200 Sec (23.4-35.0)
[2025-07-31] MEDS: CARDURA 4 MG PO (09:26)
[2025-07-31] MEDS: AVAPRO 150 MG PO (09:26)
[2025-07-31] MEDS: PROTONIX 40 MG PO (09:26)
[2025-07-31] MEDS: NORVASC 10 MG PO (09:26)
[2025-07-31 09:40] LABS: Glycohemoglobin (HgbA1c) 5.7 % (4.0-5.6)
[2025-07-31 11:51] LABS: Glucose - Point of Care 133 mg/dl (70-99)
[2025-07-31 16:51] LABS: Glucose - Point of Care 132 mg/dl (70-99)
--- NOTE | 2025-07-31 17:02 | CM ---
Alert awake oriented patient who lives with his Catia who lives in a 1 story home with 0 step to enter.He is independent in driving and in all activities of daily living.He was offered VN he declined need.
Pt [facility] hx / No SNF history
Pharmacy [facility] Jayden Bruno
PCP DR Parry
PLAN Home Declined VN
[2025-07-31 17:33] LABS: APTT 71.2 Sec (23.4-35.0)
[2025-07-31] MEDS: HEPARIN 4500 UNITS IV (17:47)
[2025-08-01 00:27] LABS: Glucose - Point of Care 122 mg/dl (70-99)
[2025-08-01 01:08] LABS: APTT 154.1 Sec (23.4-35.0)
[2025-08-01 03:54] VITALS: BP 136/69
[2025-08-01 07:23] LABS: APTT 65.1 Sec (23.4-35.0)
[2025-08-01 07:52] VITALS: BP 121/72
[2025-08-01 08:03] LABS: Glucose - Point of Care 103 mg/dl (70-99)
[2025-08-01] MEDS: NORVASC 10 MG PO (08:35)
[2025-08-01] MEDS: CARDURA 4 MG PO (08:35)
[2025-08-01] MEDS: AVAPRO 150 MG PO (08:36)
[2025-08-01] MEDS: PROTONIX 40 MG PO (08:36)
[2025-08-01] MEDS: HEPARIN 4500 UNITS IV (08:38)
--- NOTE | 2025-08-01 08:38 | W.PN.HOSP.TC ---
Today's Communication/Plan
-
Discharge today
Assessment / Plan
Assessment / Plan
Physical Exam
General: Not in acute distress
HEENT: Normocephalic. Moist mucous membranes
Respiratory: Clear to Auscultation Bilaterally
Cardiac: S1/S2 and Regular Rhythm
GI: Soft, Non Tender, Non Distended and Normal Bowel Sounds
Musculoskeletal: No Cyanosis and Other (3-4+ pitting edema of the entire RLE with chronic venous stasis skin changes / discoloration. Pos tenderness throughout. Wrapped in EDWIN Wrap)
Neuro: AO x 3
Assessment/Plan
79y M with [facility] significant for hypertension, DM-II and GERD who presented to [facility] emergency room complaining of RLE swelling. Patient stated that he went for a short walk on 07/29/25 afternoon around 2 PM. During the walk, he developed sharp pain in
the right hip/buttock area which caused him to cut his walk short. His pain persisted throughout the evening. When he awoke on 07/30/25 morning, patient noted marked swelling and discoloration of the entire RLE. He was seen by his PCP who
referred him to the ED for evaluation.
Patient denied any associated chest pain, dyspnea, fevers, chills, etc.
No recent surgery, long car rides, air travel, etc.
No prior h/o VTE.
Extensive RLE DVT
- Continue IV heparin DVT/PE protocol
- Supportive care, pain control. Follow for persistent pulses / intact neurovascular exam.
- Vascular Surgery consulted - no procedures at this time, unless patient gets more symptomatic with his right leg
- No clear trigger / etiology - consider outpatient Hematology evaluation -- [facility] Texted (on 08/01/25) Dr. Shoemaker (on-call credit underwriter), and he said that patient can be seen outpatient in hematology office in 2
to 3 months
- Vascular surgery team recommended continued compression therapy either via edwin wrap from base of toes to thigh or with thigh high compression stockings
Benign Hypertension
- Stable. Continue usual home med regimen with holding parameters.
DM-II
- Stable. Hold metformin s/p contrast study.
- Follow glucose and cover with SSI as needed.
- Update A1C 5.7%
GERD
- Stable. Continue daily PPI.
Obesity due to excess calories
- Affects all aspects of care.
- Encourage healthy diet and increased activity with goal of weight loss.
- On Ozempic as an outpatient.
DVT Prophylaxis: Eliquis
Code Status: Full
More than 30 minutes spent in discharge including
Final examination of the patient
Summarizing hospital stay
Instructions for continuing care to all relevant caregivers
Preparation of discharge records, prescriptions, and referral forms
Total time spent (in minutes): 37
Anticipated Discharge: Today
Subjective/Interval History
-
Date of Service: August 01, 2025
Patient was seen and examined. He denied any new complaints, he denied any chest pain, shortness of breath or fever.
Objective Data
-
Labs:
Laboratory Results
08/01/25 08/01/25
00:35 06:23
APTT 154.1 H* 65.1 H
Vital Signs:
Vital Signs
Temp Pulse Resp BP Pulse Ox
98.2 F 60 18 121/72 95
08/01/25 07:52 08/01/25 07:52 08/01/25 07:52 08/01/25 07:52 08/01/25 07:52
I&O
07/31/25 08/01/25 08/02/25
06:59 06:59 06:59
Intake Total 0 / 0 720 / 720 480 / 480
Output Total 0 / 0 1550 / 1550 300 / 300
Balance 0 / 0 -830 / -830 180 / 180
--- NOTE | 2025-08-01 08:38 | W.PN.VS ---
Today's Communication / Plan
-
Below plan reviewed with attending Dr. Vlad Xavier.
Assessment/Plan
-
Assessment: 79 year old male with extensive right lower extremity DVT. No evidence of iliac vein extension on CT venogram. And on CT venogram there is flow peripherally in the common femoral vein around the thrombus.
Plan:
No indication for surgical intervention, from a vascular surgical perspective can transition to oral anticoagulation
Recommend continued compression therapy either via portia warp from base of toes to thigh or with thigh high compression stockings
Recommend outpatient hematology appointment for hypercoagulable work up
We will signoff please call with questions or concerns
Subjective Data
-
Date of Service: August 01, 2025
Patient seen and examined at bedside, offers no complaints. Endorses left lower extremity swelling improved slightly since portia compression and no difficulties, incidence, or pain with ambulation.
Objective Data
-
Vital Signs
Temp Pulse Resp BP Pulse Ox
98.2 F 60 18 121/72 95
08/01/25 07:52 08/01/25 07:52 08/01/25 07:52 08/01/25 07:52 08/01/25 07:52
Intake and Output
07/31/25 08/01/25 08/02/25
06:59 06:59 06:59
Intake Total 0 / 0 720 / 720 480 / 480
Output Total 0 / 0 1550 / 1550 300 / 300
Balance 0 / 0 -830 / -830 180 / 180
Intake:
Oral fluids 0 / 0 720 / 720 480 / 480
IV fluids (Total) 0 / 0
IV piggybacks 0 / 0
Output:
Urine, Voided 0 / 0 1550 / 1550 300 / 300
Lab Results
07/30/25 23:19
07/31/25 07:43
Calcium 8.9 mg/dl (8.4-10.2) 07/31/25 07:43
Physical Exam
-
No apparent distress resting in bed comfortably
No dyspnea on room air
ABD rotund
RLE with mildly improved swelling, +2 DP, right foot warm
[2025-08-01] MEDS: HEPARIN 25000 UNITS/250 ML IV (08:39)
--- NOTE | 2025-08-01 09:14 | CM ---
MD requested pepper check for Eliquis [facility] called cost is zero . notified.
Pt in Heparin gtt with bridge to Eliquis.
Offered VN he declined need.
will transport home.
PLAN Home with no anticipated needs.
[2025-08-01] MEDS: ELIQUIS 10 MG PO (10:23)
[2025-08-01 11:38] VITALS: BP 139/70
[2025-08-01 11:48] LABS: Glucose - Point of Care 114 mg/dl (70-99)
--- NOTE | 2025-08-01 13:56 | W.DCSUMMARY ---
Discharge Summary
Discharge Data
Date of Admission: 07/31/25
Date of Discharge: 08/02/25
Total time spent discharging patient (in min): 37
-
Pending Results: No
Hospital Course
79 y/o male with past medical history significant for hypertension, type 2 diabetes mellitus and GERD who presented to [facility] ED reporting right lower extremity swelling. He started having swelling and discoloration of his right lower extremity.
Patient was found to have extensive right lower extremity DVT. Patient was started on Heparin Drip. Vascular surgery was consulted for possible procedure for the DVT. Vascular surgeon mentioned that without iliac vein component, without phlegmasia,
without severe pain, and given patient's age, would do conservative management. Patient was later transitioned from Heparin Drip to Eliquis. He was doing better and stable for discharge.
Discharge Plan
-
Patient Disposition: Home (Routine Discharge)
Discharge Diagnosis/Procedures: Extensive right lower extremity Deep Vein Thrombosis
Benign Hypertension
Type 2 Diabetes Mellitus
Gastroesophageal Reflux Disease
Obesity due to excess calories
Condition: Good
Diet: Low Fat, Low Cholesterol and Low Sodium
Activity: As tolerated
Additional Activity: Right leg compression with wrap and elevation of right leg as much as possible
Driving Restrictions: Not until seen by your Dr
Activity Restrictions/Additional Instructions:
Recommend continued compression therapy either via EDWIN warp from base of toes to thigh or with thigh high compression stockings.
Instructions: Deep vein thrombosis (blood clot in the leg), Apixaban
Referrals:
Joby Pérez DO [Family Provider, Internal Medicine] - in less than 1 week
Referral Note: Hospitalization Follow-Up
Shemar Shoemaker DO [Active, Hematology / Oncology] - in one to two months
Referral Note: Needs outpatient hematology evaluation, diagnosed with extensive RLE DVT
Additional Discharge Medication Instructions: Eliquis (also known as Apixaban) is a new medication: You should continue Eliquis 10 mg twice daily for 7 days (Day 1 was 08/01/25 and you got your first dose in the hospital in the morning of 08/01/25),
and then, starting on August 08, 2025, change your Eliquis dosing to 5 mg twice daily.
Celebrex stopped as it could increase bleeding risk while you are on Eliquis. Avoid NSAIDs type of medications.
Prescriptions:
New
Eliquis 5 mg tablet
10 mg PO BID 7 Days Qty: 26 0RF
Rx Instructions:
Next dose should be taken on 08/01/25 evening
Eliquis 5 mg tablet
5 mg PO BID Qty: 60 5RF
Rx Instructions:
Start taking this medication on August 08, 2025 morning
Continued
amlodipine 10 MG tablet
10 mg PO DAILY Qty: 0 0RF
Rx Instructions:
HOLD SYSTOLIC BLOOD PRESSURE <130
irbesartan 150 MG tablet
150 mg PO DAILY Qty: 0 0RF
Rx Instructions:
HOLD SYSTOLIC BLOOD PRESSURE <130, hold until seen by your PCP
doxazosin 4 MG tablet
4 mg PO DAILY
cholecalciferol (vitamin D3) [Vitamin D3] 1,000 UNIT capsule
1,000 unit PO DAILY
pantoprazole 40 mg tablet,delayed release (DR/EC)
40 mg PO DAILY
Ozempic 1 mg/dose (4 mg/3 mL) pen injector
1 mg SC WEEKLY
metformin 500 MG tablet
500 mg PO DAILY
Discontinued
celecoxib [Celebrex] 100 mg Capsule
100 mg PO BID
Discharge Orders:
Discharge Patient (As Directed); Ordered 08/01/25
Ordered By: Dany Cardoza
Discharge Date and Time
Discharge Date/Time: 08/01/25 14:54
Print Language: MEXICAN
== END 2025-08-01 14:54 | disposition home or self-care (01) | DRG 301 ==
LOC: 4 EAST ACU 02:44
PROVIDERS: ADMITTING PHYSICIAN Hospitalist; ATTENDING PHYSICIAN Hospitalist; EMERGENCY PHYSICIAN Emergency Medicine; FAMILY PHYSICIAN Internal Medicine; OTHER PHYSICIAN Nurse Practitioner Acute Care
DX: I82.401 Acute embolism and thrombosis of unspecified deep veins of right lower extremity (principal); K21.9 Gastro-esophageal reflux disease without esophagitis; I10 Essential (primary) hypertension; E11.9 Type 2 diabetes mellitus without complications; Z79.84 Long term (current) use of oral hypoglycemic drugs; Z79.899 Other long term (current) drug therapy; Z85.828 Personal history of other malignant neoplasm of skin; Z79.85 Long-term (current) use of injectable non-insulin antidiabetic drugs; Z79.1 Long term (current) use of non-steroidal anti-inflammatories (NSAID); E66.09 Other obesity due to excess calories; Z68.36 Body mass index [BMI] 36.0-36.9, adult; Z96.653 Presence of artificial knee joint, bilateral
CPT/HCPCS: 74177; 80048; 82962; 83036; 85025; 85730; 93971; 96365; 96366; 99285; Q9967

== ENCOUNTER 2025-11-06 06:19 | Day surgery (SDC) | payer OTHER, SELFPAY ==
[2025-11-06 09:22] LABS: Glucose - Point of Care 112 mg/dl (70-99)
== END 2025-11-06 11:10 | disposition home or self-care (01) ==
LOC: GI 06:19
PROVIDERS: ATTENDING PHYSICIAN Internal Medicine Gastroenterology
DX: Z12.11 Encounter for screening for malignant neoplasm of colon (principal); K57.30 Diverticulosis of large intestine without perforation or abscess without bleeding; K64.8 Other hemorrhoids; D12.0 Benign neoplasm of cecum; D12.3 Benign neoplasm of transverse colon; D12.4 Benign neoplasm of descending colon; Z86.0100 Personal history of colon polyps, unspecified
CPT/HCPCS: 45385; 82962; 88305